=== PATIENT | female | born 1995 | race Caucasian/White ===

== ENCOUNTER 2019-11-21 20:18 | Emergency (ER) | payer OTHER ==
[~2019-11-21] VITALS: Ht 162.6 cm; Wt 54.4 kg
[2019-11-21 20:21] VITALS: BP 122/84; Ht 162.6 cm; Wt 54.4 kg
== END 2019-11-21 20:51 | disposition home or self-care (01) ==
LOC: ED 20:18
DX: U07.1 COVID-19 (principal); M94.0 Chondrocostal junction syndrome [Tietze]